=== PATIENT | male | born 1955 | race Caucasian/White ===

== ENCOUNTER 2016-06-16 10:54 | Outpatient (CLI) | payer MEDICAID ==
[~2016-06-16] VITALS: Ht 175.3 cm; Wt 81.4 kg
[2016-06-16 11:00] VITALS: BP 117/82; PULSE 128; RESP 20; Ht 175.3 cm; Wt 81.4 kg
[2016-06-16] MEDS ORDERED: LACTINEX PO (11:10)
[2016-06-16] MEDS ORDERED: PANT40TA4 PO (11:10)
[2016-06-16] MEDS ORDERED: LEVO100T87 PO (11:10)
[2016-06-16] MEDS ORDERED: ONDA-43 PO (11:10)
[2016-06-16] MEDS ORDERED: DOCU-144 PO (11:10)
[2016-06-16] MEDS ORDERED: LOV40I SC (11:10)
--- NOTE | 2016-06-16 11:58 | PN ---
Date/Time of Note Date/Time of Note DATE: 06/16/16 TIME: 11:31 Assessment/Plan Assessment/Plan Assessment/Plan [facility] Progress Note Date of Service: 06/16/16 Today's Impression & Plan: - Overall stable and sig improved. Drain output essentially zero for 10 days and patient doing well. I therefore d/c'd the drain without issues. PTC in place , but will likely be able to d/c in 1-2 weeks if sinogram acceptable. - PTC sinogram next week and if no other issues, will d/c in IR - F/u with PCP - Completion removal of remnant gallbladder in 6-12 months Thank you very much for allowing us to participate in the care of this very nice patient and wonderful family. If there are any questions, please feel free to contact me at . Total visit time: 20 minutes, of which more than half was spent in [id number] discussion with the patient, possibly including time to discuss issues with family, as well as coordination of care with multiple other physicians and providers. Please note: Spelling or grammatical errors in this note are likely due to EHR/ dictation systems and are not reflective of patient care quality. Also please note that the dictation timestamp of this note does not necessarily reflected time of the visit for this service. Updated Clinical Summary: The patient is a very pleasant, but unfortunate, 60-year-old gentleman with comorbid issues including BMI of 32, thyroid disease, history of peptic ulcer disease, and prior umbilical hernia repair without mesh and a right inguinal hernia repair, who was admitted through the emergency department on 02/24/2016, with diagnosis of gallstone pancreatitis. He had a prolonged stay since than with ongoing issues with gallstone pancreatitis and dealing with complications of bile leak after laparoscopic cholecystectomy on 03/01/2016. He had a EL drain as well as a percutaneously placed drain in addition to a PTC drain and during the time of my original visit with him, only had the PTC drain that was capped and the other tubes had been removed. He appeared to be doing remarkably well given his complications and his prolonged hospital stay. 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 Evidence for retained stones in remnant gallbladder infundibulum/cystic duct stump. 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 Note that we had discussed potential nonsurgical intervention such as duodenal stenting but this was eventually not thought to be a good option. S/p laparoscopic hand-assisted debridement of infected necrotic pancreatitis and pancreas head (removal of an area equivalent to all of the uncinate process and approximately 50% of head of pancreas), wide drainage of abdominal cavity, and abdominal lavage on 04/20/16. Bilious output through drains post op. Drain sinogram 04/26/16 showed communication with duodenum from head of pancreas region. Wound infection on the lateral edge, s/p opening and draining at bedside (much appreciate Dr. Nicolas 's intervention). Ongoing duodenal leak contained by wide abdominal drainage system. PTC moved distal to area of leak 05/06/16. Repeat CT abd/pelvis 05/06/16 showed sig improvement in size of pancreas head necrosis. On 05/07/16: CT shows sig improvement in the region of head of pancreas. No further necrotic tissue and no indication for further necrosectomy. D/w Dr. Savage. Drains in adequate place. One, possible two duodenal tracts. Main tract is proximal to tip of 24 Fr. pigtail (? area of duct of [place]). May be amenable to covered stent attempt to further decrease duodenal leak. Repositioning of the PTC seems successful and should divert more bile away from area of the leak. 19 Fr surgical drain can likely come out in a few days since it is not draining sig amounts and on CT appears to have moved away from root of mesentery. 24 Fr. surgical drain may need to be replaced by a pigtail drain, or perhaps could be discontinued all together. Surgical drains d/c'd 05/20/16. D/c home 06/03/16. Main perc drain d/c's in office 06/16/16. Subjective: No major events or complaints since d/c from hospital. Feels well. No sig pain. No fevers. no n; - v and no diarrhea. No SOB or CP. + bowel activity and normal appearing. On regular food and no vomiting. Off of TPN. Periumbilical area no longer with sig pain and only has minor discharge. Objective: Vitals: reviewed; please also see EHR Physical Exam: Lungs: breathing comfortably without tachypnea; no audible wheezes, rales or rhonchi on gross exam Abd: Soft, non-tender and non-distended; PTC capped; perc drain with no output; d/c'd at bedside without any difficulty. Incisions appear to be clean, dry, and intact without any obvious erythema, edema, discharge, or hernia, gauze dressing relatively clean. Periumbilical incision dressing clean. Skin: Appears pink and feels warm to touch. Neuro: Awake, alert and follows commands appropriately Exam/Review of Systems Vital Signs Vitals Vital Signs Date Time Temp Pulse Resp B/P Pulse Ox O2 Delivery O2 Flow Rate FiO2 06/16/16 11:00 97.7 128 20 117/82 98 Room Air ALEX HANNA M.D. Jun 16, 2016 11:57
== END 2016-06-16 16:53 | disposition home or self-care (01) ==
LOC: HPC 10:54
PROVIDERS: ATTEND Transplant Surgery
DX: Z48.815 Encounter for surgical aftercare following surgery on the digestive system (principal)
CPT/HCPCS: G0463

== ENCOUNTER 2017-06-08 13:12 | Outpatient (CLI) | END 2017-06-08 17:00 | disposition home or self-care (01) ==

== ENCOUNTER 2017-07-13 15:39 | Outpatient (CLI) | END 2017-07-13 17:00 | disposition home or self-care (01) ==

== ENCOUNTER 2017-08-08 15:31 | Observation (INO) | END 2017-08-09 11:40 | disposition home or self-care (01) ==

== ENCOUNTER 2017-08-24 14:50 | Outpatient (CLI) | END 2017-08-24 15:49 | disposition home or self-care (01) ==